=== PATIENT | male | born 1925 | race Caucasian/White ===

== ENCOUNTER 2016-11-30 13:29 | Emergency (ER) | payer OTHER ==
[~2016-11-30 13:29] MED LIST: ASPI81TA28 PO; ATOR10TA82 PO; CITA10TA8 PO; DONE10TA12 PO; HYT/2 PO; LISI-725 PO; METO50TA16 PO; NMN5 PO; NTRGSL/4 UT
[2016-11-30 13:36] VITALS: TEMP 36.7
--- NOTE | 2016-11-30 14:07 | EMERGENCY ROOM VISIT NOTE ---
History Report prepared by Rhett: Sara Silveira Under the Supervision of: Dr. Curtis Savage D.O. First contact with patient: 13:50 Chief Complaint: RESPIRATORY PROBLEMS Stated Complaint: COLD History of Present Illness The patient is an 89 year old male who presents to the Emergency Room with complaints of persistent respiratory problems that began yesterday. Per the patient's son, the patient developed chest congestion yesterday. He states that yesterday the patient was with other members of his family, when they first noticed the chest congestion. The patient's son states that when the patient develops chest congestion, he eventually develops pneumonia. He states that he just wants to stay ahead of the illness. The patient's son states that the patient's pulse ox has been around 97% today. He denies the patient having any cough or sore throat. The patient's son states that he would have taken the patient to the walk-in clinic at his PCP's office today, but states that typically a chest x-ray would have been ordered, and he would have brought the patient to the hospital for that. Source of History: patient Onset: yesterday Position: other (global) Quality: other (respiratory problems) Timing: other (persistent) Associated Symptoms: No cough, No sorethroat Note: Associated Symptoms: chest congestion Review of Systems See HPI for pertinent positives & negatives. A total of 10 systems reviewed and were otherwise negative. Past Medical & Surgical Medical Problems: (1) Cerebrovascular disease (2) Contusion of rib on right side (3) Coronary artery disease (4) Dementia (5) Dyslipidemia (6) Hypertension (7) Macular degeneration (8) Pacemaker (9) Paroxysmal atrial fibrillation (10) PNA (pneumonia) Surgical Problems: (1) Status post appendectomy (2) Status post cardiac pacemaker procedure Family History Heart disease FATHER Social History Smoking Status: Never Smoker Smokeless Tobacco Use: No Alcohol Use: none Drug Use: none Marital Status: Housing Status: lives with significant other Occupation Status: retired Current/Historical Medications Scheduled Aspirin (Aspirin Ec), 81 MG PO DAILY Atorvastatin (Lipitor), 10 MG PO DAILY Citalopram Hydrobromide (Celexa), 10 MG PO DAILY Donepezil Hydrochloride (Aricept), 10 MG PO HS Lisinopril (Zestril), 20 MG PO DAILY Memantine (Namenda), 5 MG PO QPM Metoprolol Tartrate (Lopressor) (Lopressor), 50 MG PO BID Nitroglycerin (Nitrostat), 0.4 MG UT PRN Terazosin Hcl (Hytrin), 2 MG PO HS Allergies Coded Allergies: No Known Allergies (Unverified , 10/21/15) Physical Exam Vital Signs Date Time Temp Pulse Resp B/P Pulse Ox O2 Delivery O2 Flow Rate FiO2 11/30/16 13:36 36.7 78 20 103/57 97 Room Air Physical Exam CONSTITUTIONAL/VITAL SIGNS: Reviewed / noted above. GENERAL: Non-toxic in appearance. INTEGUMENTARY: Warm, dry, and [place]. HEAD: Normocephalic. EYES: without scleral icterus or trauma. ENT/OROPHARYNX: clear and moist. LYMPHADENOPATHY/NECK: Is supple without lymphadenopathy or meningismus. RESPIRATORY: Lungs clear and equal. CARDIOVASCULAR: Regular rate and rhythm. GI/ABDOMEN: Soft and nontender. No organomegaly or pulsatile mass. No rebound or guarding. Normal bowel sounds. EXTREMITIES: Warm and well perfused. BACK: No CVA tenderness. NEUROLOGICAL: Intact without focal deficits. PSYCHIATRIC: normal affect. MUSCULOSKELETAL: Normally developed with good muscle tone. Medical Decision & Procedures ED Course 1356: Previous medical records were reviewed. The patient was evaluated in room C1B. A complete history and physical examination was performed. After discussing the physical exam findings with the patient and his son, I discussed the treatment plan. They verbalized complete understanding and agreement. The patient is ready for discharge shortly. Medical Decision Differential includes viral illness, influenza, streptococcal pharyngitis, meningitis, pneumonia, sinusitis, UTI, pyelonephritis, otitis media. This is an 89-year-old male who presents to the ED with a chief complaint of no specific complaint. The patient's son states that the patient had some hoarseness in his voice last night and he states that he has a tendency to get pneumonia. He wanted his father checked for this. The patient currently has no symptoms. He has no hoarseness in his voice. Denies a cough and shortness of breath. His exam was normal. He is not hypoxic or febrile. He was examined and then felt to be stable for discharge. Impression Primary Impression: Hoarseness of voice Scribe Attestation The scribe's documentation has been prepared under my direction and personally reviewed by me in its entirety. I confirm that the note above accurately reflects all work, treatment, procedures, and medical decision making performed by me. Departure Information Referrals George Pcukett D.O. (PCP) Patient Instructions My [facility]
[2016-11-30 14:12] VITALS: BP 117/60; PULSE 83; O2SAT 98
== END 2016-11-30 14:22 | disposition home or self-care (01) ==
LOC: C.EDB 13:31 → C.EDC 14:22
DX: R49.0 Dysphonia (principal); I67.9 Cerebrovascular disease, unspecified; I25.10 Atherosclerotic heart disease of native coronary artery without angina pectoris; F03.90 Unspecified dementia, unspecified severity, without behavioral disturbance, psychotic disturbance, mood disturbance, and anxiety; E78.5 Hyperlipidemia, unspecified; I10 Essential (primary) hypertension; H35.30 Unspecified macular degeneration; I48.0 Paroxysmal atrial fibrillation; Z95.0 Presence of cardiac pacemaker; Z87.01 Personal history of pneumonia (recurrent); Z79.82 Long term (current) use of aspirin